=== PATIENT | male | born 1970 | race Caucasian/White ===

== ENCOUNTER 2024-03-14 17:01 | Emergency (ER) | payer BC, SELFPAY ==
[2024-03-14 17:06] VITALS: BP 154/94; PULSE 78; TEMP 36.8; O2SAT 96; BMI 29.8
--- NOTE | 2024-03-14 17:10 | XR_ITS ---
The [address] [address] Patient Name: JEREMIAH MEZA MRN: [id number] date: 1970 Sex: M Assigned Patient Location: ER Current Patient Location: ER Accession/Order Number: [id number] Exam Date: 03/14/2024 17:20 Report Date: 03/14/2024 18:35 At the request of: ALMA ROSA WELSH Procedure: XR foot RT min 3V IMAGES REVIEWED: XR ankle RT min 3V, XR foot RT min 3V COMPARISON: None available. CLINICAL INDICATION: pain FINDINGS/IMPRESSION: 1. Acute avulsion fracture of the lateral malleolus demonstrating mild displacement. 2. Acute mildly displaced fracture of the lateral talus with intra-articular extension into the subtalar joint. 3. Follow-up CT could better assess for subtle nondisplaced impaction fracture of the superolateral calcaneus. 4. Small subtle acute nondisplaced fracture of the posterior talus versus os trigonum. 5. Right foot and ankle otherwise appear intact. 6. Small plantar calcaneal spur. Electronically authenticated by: TY NAJERA Date: 03/14/2024 18:35
--- NOTE | 2024-03-14 17:10 | XR_ITS ---
The [address] [address] Patient Name: JEREMIAH MEZA MRN: [id number] date: 1970 Sex: M Assigned Patient Location: ER Current Patient Location: ER Accession/Order Number: [id number] Exam Date: 03/14/2024 17:20 Report Date: 03/14/2024 18:35 At the request of: ALMA ROSA WELSH Procedure: XR ankle RT min 3V IMAGES REVIEWED: XR ankle RT min 3V, XR foot RT min 3V COMPARISON: None available. CLINICAL INDICATION: pain FINDINGS/IMPRESSION: 1. Acute avulsion fracture of the lateral malleolus demonstrating mild displacement. 2. Acute mildly displaced fracture of the lateral talus with intra-articular extension into the subtalar joint. 3. Follow-up CT could better assess for subtle nondisplaced impaction fracture of the superolateral calcaneus. 4. Small subtle acute nondisplaced fracture of the posterior talus versus os trigonum. 5. Right foot and ankle otherwise appear intact. 6. Small plantar calcaneal spur. Electronically authenticated by: TY NAJERA Date: 03/14/2024 18:35
--- NOTE | 2024-03-14 17:44 | CT_ITS ---
The [address] [address] Patient Name: JEREMIAH MEZA MRN: [id number] date: 1970 Sex: M Assigned Patient Location: ER Current Patient Location: ED.[facility] Accession/Order Number: [id number] Exam Date: 03/14/2024 18:02 Report Date: 03/14/2024 19:33 At the request of: ALMA ROSA WELSH Procedure: CT foot RT wo con EXAM: CT foot RT wo con COMPARISON: Same day x-rays. CLINICAL INDICATION: calcaneous fracture TECHNIQUE: Multiplanar CT images of the right foot without contrast. Dose reduction techniques were achieved by using automated exposure control and/or adjustment of mA and/or kV according to patient size and/or use of iterative reconstruction technique. FINDINGS: Acute mildly comminuted retinacular avulsion fracture of the lateral-posterolateral cortex of the distal fibula demonstrating approximately 5 mm displacement. Acute markedly comminuted intra-articular fracture of the lateral-plantar talus at its subtalar joint articulation. Acute mildly displaced small fractures of the posterior medial talus and posterior lateral talus as best seen on sagittal imaging. Acute intra-articular nondisplaced mildly comminuted impaction fracture of the posterior lateral calcaneus with slight depression of the articular surface as best seen on sagittal images 115-125. Otherwise osseous structures appear intact. Moderate degenerative change of the subtalar joint, particularly along the medial aspect. CT/CT foot RT wo con IMPRESSION: As above. Electronically authenticated by: TY NAJERA Date: 03/14/2024 19:33
[2024-03-14] MEDS: HYDROCODONE/ACET 5-325 MG TABLET 1 TAB PO (17:53)
[2024-03-14 17:57] VITALS: BP 150/103; PULSE 77; O2SAT 97
--- NOTE | 2024-03-14 18:15 | ED_ITS ---
Documented by User: Venus Welsh 03/14/24 19:38 HPI HPI - General Adult General Chief complaint: Extremity Injury, Lower Stated complaint: lower extremity injury Time Seen by Provider: 03/14/24 17:05 Source: patient Mode of arrival: Wheelchair Limitations: no limitations History of Present Illness HPI narrative: 53-year-old male presents emergency room chief complaint of right foot ankle injury. He states he was approximately 4 feet off the ground on a ladder when he slipped and fell landing directly on his right foot and heel. He denies any other injury or pain. Denies striking his head. Injury occurred just prior to arrival. He said he felt a right ankle roll and a posterior ankle pain. Most of his pain is in the sole of his foot. He has no previous fracture to this extremity. Patient was ambulating with a slight limp. Related Data Home Medications ?Medication ?Instructions ?Recorded ?Confirmed esomeprazole magnesium 20 mg 20 mg PO DAILY 03/14/24 03/14/24 capsule,delayed release (Nexium) Allergies Allergy/AdvReac Type Severity Reaction Status Date / Time No Known Drug Allergies Allergy Verified 03/14/24 17:11 Opioid HPI Opioid Management Most Recent Opioid Data: Last Pain Scale 6 03/14/24 17:53 Last ED Pain Assessment 03/14/24 17:19 Last MAR Pain Assessment 03/14/24 17:53 Review of Systems ROS Narrative All Systems are negative except as noted/marked.All systems reviewed and otherwise negative Exam Narrative Exam Narrative: Nurses note and vital signs reviewed and patient is not hypoxic. General: The patient appears well and in no apparent distress. Patient is resting comfortably on cart. Skin: Warm, dry, no pallor noted. There is no rash noted. Head: Normocephalic, atraumatic Cardiovascular: Regular Rate and Rhythm Respiratory: Patient is in no distress, no accessory muscle use, lungs are clear to auscultation, no wheezing, rales or rhonchi Back: non-tender, no CVA tenderness bilaterally to percussion. GI: Normal bowel sounds, no tenderness to palpation, no masses appreciated. No rebound, guarding, or rigidity noted. Musculoskeletal: right lateral foot and heel pain, soft tissue swelling, neurovascularly intact. The patient has no evidence of calf tenderness, no pitting edema, symmetrical pulses noted bilaterally Neurological: A&O x4, normal speech Psychiatric: Cooperative Constitutional Vital Signs, click to edit/add: Last Vital Signs Temp 98.2 F 03/14/24 17:06 Pulse 77 03/14/24 17:57 Resp 18 03/14/24 17:57 BP 164/116 H 03/14/24 18:52 Pulse Ox 97 03/14/24 17:57 O2 Del Method Room Air 03/14/24 17:57 Course Vital Signs Vital signs: Vital Signs Temperature 98.2 F 03/14/24 17:06 Pulse Rate 78 03/14/24 17:06 Respiratory Rate 18 03/14/24 17:06 Blood Pressure 154/94 H 03/14/24 17:06 Pulse Oximetry 96 03/14/24 17:06 Oxygen Delivery Method Room Air 03/14/24 17:06 Temperature 98.2 F 03/14/24 17:06 Pulse Rate 77 03/14/24 17:57 Respiratory Rate 18 03/14/24 17:57 Blood Pressure 164/116 H 03/14/24 18:52 Pulse Oximetry 97 03/14/24 17:57 Oxygen Delivery Method Room Air 03/14/24 17:57 Medical Decision Making MDM Narrative Medical decision making narrative: pt presents with a chief complaint of right ankle, foot injury. Initial x-rays were performed and showed he had a calcaneus fracture. I did speak to Dr. Sissy al concerning this patient's care. Patient will follow-up with Dr. Billy's office. CT scan of the right foot is currently pending as well. No previous extremity injury to the right lower extremity. He has not seen orthopedics in the past. Long posterior splint was applied by myself. Extremity neurovascular intact before and after splint. Patient was medicated here with 1 Whick. Medical Records Medical records reviewed: Yes I reviewed the patient's medical records Imaging Data foot: Attestation: I have reviewed the pertinent imaging results. Radiologist's impression: ITS Impressions Foot CT 03/14/24 17:44 IMPRESSION: As above. Electronically authenticated by: TY NAJERA Date: 03/14/2024 19:33 At the request of: VENUS WELSH Procedure: XR ankle RT min 3V IMAGES REVIEWED: XR ankle RT min 3V, XR foot RT min 3V COMPARISON: None available. CLINICAL INDICATION: pain FINDINGS/IMPRESSION: 1. Acute avulsion fracture of the lateral malleolus demonstrating mild displacement. 2. Acute mildly displaced fracture of the lateral talus with intra-articular extension into the subtalar joint. 3. Follow-up CT could better assess for subtle nondisplaced impaction fracture of the superolateral calcaneus. 4. Small subtle acute nondisplaced fracture of the posterior talus versus os trigonum. 5. Right foot and ankle otherwise appear intact. 6. Small plantar calcaneal spur. Electronically authenticated by: TY NAJERA Date: 03/14/2024 18:35 ankle: Radiologist's impression: ITS Impressions Foot CT 03/14/24 17:44 IMPRESSION: As above. Electronically authenticated by: TY NAJERA Date: 03/14/2024 19:33 Discharge Plan Discharge Stand Alone Forms: Portal Instructions Chief Complaint: Extremity Injury, Lower Clinical Impression: Calcaneal fracture Patient Disposition: Home, Self-Care Time of Disposition Decision: 19:26 Condition: Good Prescriptions / Home Meds: No Action esomeprazole magnesium [Nexium] 20 mg capsule,delayed release(DR/EC) 20 mg PO DAILY Print Language: Australian Instructions: Crutch Instructions (ED), Calcaneal Fracture (ED) Referrals: RICA DILLARD [Primary Care Provider] - 1 week Kyler Billy DPM [Physician] - 03/17/24 Documented by User: Max Everett MD 03/14/24 19:40 HPI HPI - General Adult General Chief complaint: Extremity Injury, Lower Stated complaint: lower extremity injury Time Seen by Provider: 03/14/24 17:05 Related Data Home Medications ?Medication ?Instructions ?Recorded ?Confirmed esomeprazole magnesium 20 mg 20 mg PO DAILY 03/14/24 03/14/24 capsule,delayed release (Nexium) Allergies Allergy/AdvReac Type Severity Reaction Status Date / Time No Known Drug Allergies Allergy Verified 03/14/24 17:11 Opioid HPI Opioid Management Most Recent Opioid Data: Last Pain Scale 6 03/14/24 17:53 Last ED Pain Assessment 03/14/24 17:19 Last MAR Pain Assessment 03/14/24 17:53 Exam Constitutional Vital Signs, click to edit/add: Last Vital Signs Temp 98.2 F 03/14/24 17:06 Pulse 77 03/14/24 17:57 Resp 18 03/14/24 17:57 BP 164/116 H 03/14/24 18:52 Pulse Ox 97 03/14/24 17:57 O2 Del Method Room Air 03/14/24 17:57 Course Vital Signs Vital signs: Vital Signs Temperature 98.2 F 03/14/24 17:06 Pulse Rate 78 03/14/24 17:06 Respiratory Rate 18 03/14/24 17:06 Blood Pressure 154/94 H 03/14/24 17:06 Pulse Oximetry 96 03/14/24 17:06 Oxygen Delivery Method Room Air 03/14/24 17:06 Temperature 98.2 F 03/14/24 17:06 Pulse Rate 77 03/14/24 17:57 Respiratory Rate 18 03/14/24 17:57 Blood Pressure 164/116 H 03/14/24 18:52 Pulse Oximetry 97 03/14/24 17:57 Oxygen Delivery Method Room Air 03/14/24 17:57 Medical Decision Making [facility] Narrative Medical decision making narrative: pt presents with a chief complaint of right ankle, foot injury. Initial x-rays were performed and showed he had a calcaneus fracture. I did speak to Dr. Billy concerning this patient's care. Patient will follow-up with Dr. Billy's office. CT scan of the right foot is currently pending as well. This is ordered at the request of Dr. Billy to help him with evaluation and treatment. No previous extremity injury to the right lower extremity. He has not seen orthopedics in the past. Procedure note: short posterior splint was applied by Venus PAZ and Sophie Staffed with Extremity neurovascular intact before and after splint. Splint was assisted with . the patient was neurovascularly intact before and after the splint was placed. the affected bones/injured area had proper alignment in a splint. Education on splint care at home was given at bedside. Patient and family have no questions at discharge. Patient was medicated here with 1 Whick. Imaging Data foot: Radiologist's impression: ITS Impressions Foot CT 03/14/24 17:44 IMPRESSION: As above. Electronically authenticated by: TY NAJERA Date: 03/14/2024 19:33 ankle: Radiologist's impression: ITS Impressions Foot CT 03/14/24 17:44
[2024-03-14 18:52] VITALS: BP 164/116
== END 2024-03-14 19:40 | disposition home or self-care (01) ==
PROVIDERS: Emergency Provider Emergency Medicine; Family Provider Family Medicine; PCP Family Medicine
DX: S92.001A Unspecified fracture of right calcaneus, initial encounter for closed fracture (principal); S92.191A Other fracture of right talus, initial encounter for closed fracture; W11.XXXA Fall on and from ladder, initial encounter
CPT/HCPCS: 29515; 73610; 73630; 73700; 99285

== ENCOUNTER 2024-04-09 10:01 | Outpatient (OUT) | payer BC, SELFPAY ==
--- NOTE | 2024-04-09 | XR_ITS ---
The [address] [address] Patient Name: JEREMIAH MEZA MRN: [id number] date: 1970 Sex: M Assigned Patient Location: Current Patient Location: Accession/Order Number: [id number] Exam Date: 04/09/2024 10:02 Report Date: 04/10/2024 07:44 At the request of: LOAN BURGOS Procedure: XR foot RT min 3V PROCEDURE: XR foot RT min 3V HISTORY: RIGHT FOOT PAIN COMPARISON: None. FINDINGS: BONES:No fracture, acute abnormality, or significant arthropathy. SOFT TISSUES:No visible soft tissue swelling. EFFUSION:None visible. OTHER: Negative. XR/XR foot RT min 3V IMPRESSION: 1. No appreciable acute abnormality or significant chronic degenerative changes. 2. Lateral malleolus and lateral talar fracture described on prior right ankle radiographs are not visible on the right foot radiographs. Consider follow-up right ankle radiographs if clinically indicated. Electronically authenticated by: YARELY CLEARY Date: 04/10/2024 07:44
== END 2024-04-09 10:02 | disposition home or self-care (01) ==
LOC: EC 10:02
PROVIDERS: Family Provider Family Medicine; PCP Family Medicine; Visit Provider Podiatrist Foot & Ankle Surgery
DX: M79.671 Pain in right foot (principal)
CPT/HCPCS: 73630

== ENCOUNTER 2024-04-29 09:26 | Outpatient (OUT) | payer BC, SELFPAY ==
--- NOTE | 2024-04-29 | XR_ITS ---
The [address] [address] Patient Name: JEREMIAH MEZA MRN: [id number] date: 1970 Sex: M Assigned Patient Location: Current Patient Location: Accession/Order Number: [id number] Exam Date: 04/29/2024 09:45 Report Date: 04/29/2024 10:13 At the request of: LOAN BURGOS Procedure: XR foot RT min 3V PROCEDURE: XR foot RT min 3V, XR ankle RT min 3V COMPARISON: HISTORY: RIGHT FOOT PAIN FINDINGS: BONES:No new fracture or dislocation. Increased sclerosis along the plantar talus consistent with a healing fracture. Stable comminuted fracture lateral aspect of the lateral malleolus Mild enthesopathic spurring of the calcaneus at the Achilles and plantar insertions. SOFT TISSUES:Soft tissue swelling EFFUSION:None visible. OTHER: Negative. XR/XR foot RT min 3V IMPRESSION: Stable fractures plantar talus and lateral malleolus Electronically authenticated by: RICA ROBLES Date: 04/29/2024 10:13
--- NOTE | 2024-04-29 | XR_ITS ---
The [address] [address] Patient Name: JEREMIAH MEZA MRN: [id number] date: 1970 Sex: M Assigned Patient Location: Current Patient Location: Accession/Order Number: [id number] Exam Date: 04/29/2024 09:45 Report Date: 04/29/2024 10:13 At the request of: LOAN BURGOS Procedure: XR ankle RT min 3V PROCEDURE: XR foot RT min 3V, XR ankle RT min 3V COMPARISON: HISTORY: RIGHT FOOT PAIN FINDINGS: BONES:No new fracture or dislocation. Increased sclerosis along the plantar talus consistent with a healing fracture. Stable comminuted fracture lateral aspect of the lateral malleolus Mild enthesopathic spurring of the calcaneus at the Achilles and plantar insertions. SOFT TISSUES:Soft tissue swelling EFFUSION:None visible. OTHER: Negative. XR/XR ankle RT min 3V IMPRESSION: Stable fractures plantar talus and lateral malleolus Electronically authenticated by: RICA ROBLES Date: 04/29/2024 10:13
== END 2024-04-29 09:27 | disposition home or self-care (01) ==
LOC: EC 09:27
PROVIDERS: Family Provider Family Medicine; PCP Family Medicine; Visit Provider Podiatrist Foot & Ankle Surgery
DX: M25.571 Pain in right ankle and joints of right foot (principal); S92.191D Other fracture of right talus, subsequent encounter for fracture with routine healing; S82.64XD Nondisplaced fracture of lateral malleolus of right fibula, subsequent encounter for closed fracture with routine healing
CPT/HCPCS: 73610; 73630

== ENCOUNTER 2024-05-27 09:31 | Outpatient (OUT) | payer BC, SELFPAY ==
--- NOTE | 2024-05-27 | XR_ITS ---
The [address] [address] Patient Name: JEREMIAH MEZA MRN: [id number] date: 1970 Sex: M Assigned Patient Location: Current Patient Location: Accession/Order Number: [id number] Exam Date: 05/27/2024 09:31 Report Date: 05/28/2024 06:35 At the request of: LOAN BURGOS Procedure: XR ankle RT min 3V PROCEDURE: XR ankle RT min 3V, XR calcaneus RT min 2V HISTORY: RIGHT ANKLE PAIN COMPARISON: XR right ankle and foot 04/29/2024, CT foot 03/14/2024 FINDINGS: BONES:Increased sclerosis along the plantar margin of mid talus in region of sinus tarsi at site of prior fracture . Stable thin calcifications lateral to the lateral malleolus consistent with avulsion fracture. SOFT TISSUES:Mild soft tissue swelling surrounding the ankle. EFFUSION:None visible. OTHER: Negative. XR/XR ankle RT min 3V IMPRESSION: 1. Grossly stable alignment and suspected ongoing bone healing of talus fracture and lateral malleolus fracture. 2. No appreciable calcaneal fracture on today's images. Electronically authenticated by: YARELY CLEARY Date: 05/28/2024 06:35
--- NOTE | 2024-05-27 | XR_ITS ---
The [address] [address] Patient Name: JEREMIAH MZEA MRN: [id number] date: 1970 Sex: M Assigned Patient Location: Current Patient Location: Accession/Order Number: [id number] Exam Date: 05/27/2024 09:33 Report Date: 05/28/2024 06:35 At the request of: LOAN BURGOS Procedure: XR calcaneus RT min 2V PROCEDURE: XR ankle RT min 3V, XR calcaneus RT min 2V HISTORY: RIGHT ANKLE PAIN COMPARISON: XR right ankle and foot 04/29/2024, CT foot 03/14/2024 FINDINGS: BONES:Increased sclerosis along the plantar margin of mid talus in region of sinus tarsi at site of prior fracture . Stable thin calcifications lateral to the lateral malleolus consistent with avulsion fracture. SOFT TISSUES:Mild soft tissue swelling surrounding the ankle. EFFUSION:None visible. OTHER: Negative. XR/XR calcaneus RT min 2V IMPRESSION: 1. Grossly stable alignment and suspected ongoing bone healing of talus fracture and lateral malleolus fracture. 2. No appreciable calcaneal fracture on today's images. Electronically authenticated by: YARELY CLEARY Date: 05/28/2024 06:35
== END 2024-05-27 09:32 | disposition home or self-care (01) ==
LOC: EC 09:31
PROVIDERS: Family Provider Family Medicine; PCP Family Medicine; Visit Provider Podiatrist Foot & Ankle Surgery
DX: M25.571 Pain in right ankle and joints of right foot (principal); S92.191D Other fracture of right talus, subsequent encounter for fracture with routine healing; S82.61XD Displaced fracture of lateral malleolus of right fibula, subsequent encounter for closed fracture with routine healing
CPT/HCPCS: 73610; 73650

== ENCOUNTER 2024-06-11 10:10 | Outpatient (OUT) | payer BC, SELFPAY ==
--- NOTE | 2024-06-11 10:20 | CT_ITS ---
The [address] [address] Patient Name: JEREMIAH MEZA MRN: [id number] date: 1970 Sex: M Assigned Patient Location: CT Current Patient Location: Accession/Order Number: [id number] Exam Date: 06/11/2024 10:22 Report Date: 06/12/2024 07:57 At the request of: LOAN BURGOS Procedure: CT ankle RT wo con EXAMINATION: CT ankle RT wo con HISTORY: Talus Fracture COMPARISON: No relevant comparison available. TECHNIQUE: Multi-planar CT images were created without IV contrast. Dose reduction techniques were achieved by using automated exposure control and/or adjustment of mA and/or kV according to patient size and/or use of iterative reconstruction technique. FINDINGS: BONES: 1.9 x 0.9 x 1.3 cm fracture fragment identified along the lateral process of the talus this is best visualized on sagittal image 66 and coronal image 54. No bone formation or bony bridging is observed. Linear calcific density identified along the lateral aspect of the distal fibula consistent with an avulsion injury. Permeative pattern of the bones suggests osteopenia with cortical thinning. Mild to moderate enthesopathic spurring of the calcaneus at the Achilles and plantar insertions SOFT TISSUES: Moderate soft tissue swelling EFFUSION: None visible. OTHER: Negative. CT/CT ankle RT wo con IMPRESSION: 1.9 cm acute fracture along the lateral process of the talus Electronically authenticated by: RICA ROBLES Date: 06/12/2024 07:57
== END 2024-06-11 10:11 | disposition home or self-care (01) ==
LOC: CT 10:11
PROVIDERS: Family Provider Family Medicine; PCP Family Medicine; Visit Provider Podiatrist Foot & Ankle Surgery
DX: S92.101A Unspecified fracture of right talus, initial encounter for closed fracture (principal)
CPT/HCPCS: 73700

== ENCOUNTER 2024-07-16 09:50 | Outpatient (OUT) | payer BC, SELFPAY ==
--- NOTE | 2024-07-16 | XR_ITS ---
The [address] [address] Patient Name: JEREMIAH MEZA MRN: [id number] date: 1970 Sex: M Assigned Patient Location: Current Patient Location: Accession/Order Number: [id number] Exam Date: 07/16/2024 09:52 Report Date: 07/18/2024 04:25 At the request of: LOAN BURGOS Procedure: XR foot RT min 3V PROCEDURE: XR foot RT min 3V HISTORY: RIGHT FOOT PAIN COMPARISON: None. FINDINGS: BONES:Increased sclerosis adjacent the talocalcaneal joint favoring ongoing bone healing. No new fracture or dislocation. SOFT TISSUES:No visible soft tissue swelling. EFFUSION:None visible. OTHER: Negative. XR/XR foot RT min 3V IMPRESSION: 1. Ongoing bone healing. Electronically authenticated by: YARELY CLEARY Date: 07/18/2024 04:25
== END 2024-07-16 09:51 | disposition home or self-care (01) ==
LOC: EC 09:50
PROVIDERS: Family Provider Family Medicine; PCP Family Medicine; Visit Provider Podiatrist Foot & Ankle Surgery
DX: M79.671 Pain in right foot (principal)
CPT/HCPCS: 73630

== ENCOUNTER 2024-08-12 09:07 | Outpatient (OUT) | payer BC, SELFPAY ==
--- NOTE | 2024-08-12 | XR_ITS ---
The [address] [address] Patient Name: JEREMIAH MEZA MRN: [id number] date: 1970 Sex: M Assigned Patient Location: [facility] Current Patient Location: Accession/Order Number: [id number] Exam Date: 08/12/2024 09:10 Report Date: 08/13/2024 06:32 At the request of: LOAN BURGOS Procedure: XR foot RT min 3V PROCEDURE: XR foot RT min 3V HISTORY: RIGHT FOOT PAIN COMPARISON: XR foot right 07/16/2024 FINDINGS: BONES:Stable alignment and appearance of the bones of the foot and ankle. SOFT TISSUES:No visible soft tissue swelling. EFFUSION:None visible. OTHER: Negative. XR/XR foot RT min 3V IMPRESSION: 1. Different patient histories described prior calcaneal fracture and or talar fracture. Stable appearance of the foot. Consider follow-up with CT imaging. Electronically authenticated by: YARELY CLEARY Date: 08/13/2024 06:32
--- OUTSIDE RECORDS SUMMARY | 2024-08-12 09:10 | XMS_ITS | CCD ---
Author Organization [facility] Care Team Providers Care Pleating Supervisor Name Role Phone LOAN BURGOS Referring Unavailable Encounters Encounter Date Encounter Type Care Provider Facility Start: 07[facility]23[facility]2024 [facility] Date Payer Category Payer Unknown [id number] 1970 Unknown [id number] Summary Purpose Family History No Family History Records Found Advance Directives No Advanced Directives Records Found Additional Source Comments (unrecognized sect ion and content) No Status Records Found INFORMATION SOURCE (unrecogn ized section and content) DATE CREATED AUTHOR 08/11/2024 [facility] FOR RECORDS PERTAINING TO PATIENTS WHO ARE OR HAVE BEEN ENROLLED IN A CHEMICAL DEPENDENCY/SUBSTANCEABUSE PROGRAM, SOME INFORMATION MAY BE OMITTED. This clinical summary was aggregated from multiple sources. Caution should be exercised in using it in the provision of clinical care. This summary normalizes information from multiple sources, and as a consequence, information in this document may materially change the coding, format and clinical context of patient data. In addition, data may be omitted in some cases. CLINICAL DECISIONS SHOULD BE BASED ON THE PRIMARY CLINICAL RECORDS. [facility] [employer] [facility]. provides no warranty or guarantee of the accuracy or completeness of information in this document.
== END 2024-08-12 09:08 | disposition home or self-care (01) ==
LOC: RAD 09:07
PROVIDERS: Family Provider Family Medicine; PCP Family Medicine; Visit Provider Podiatrist Foot & Ankle Surgery
DX: S92.121 Displaced fracture of body of right talus (principal)
CPT/HCPCS: 73630

== ENCOUNTER 2024-09-10 09:01 | Outpatient (OUT) | payer BC, SELFPAY ==
--- NOTE | 2024-09-10 09:04 | XR_ITS ---
[address] [address] Patient Name: JEREMIAH MEZA MRN: [id number] date: 1970 Sex: M Assigned Patient Location: [facility] Current Patient Location: Accession/Order Number: [id number] Exam Date: 09/10/2024 09:04 Report Date: 09/15/2024 07:23 At the request of: LOAN BURGOS Procedure: XR foot RT min 3V PROCEDURE: XR foot RT min 3V COMPARISON: 08/12/2024 HISTORY: Right Foot Pain FINDINGS: BONES:No acute fracture or dislocation. Mild degenerative changes with marginal osteophyte formation and enthesopathic spurring. SOFT TISSUES:Negative. No visible soft tissue swelling. EFFUSION:None visible. OTHER: Negative. XR/XR foot RT min 3V IMPRESSION: Mild degenerative changes Electronically authenticated by: RICA ROBLES Date: 09/15/2024 07:23
--- OUTSIDE RECORDS SUMMARY | 2024-09-10 09:20 | XMS_ITS | CCD ---
Author Organization [facility] Care Team Providers Care Eviction Specialist Name Role Phone LOAN BURGOS Referring Unavailable Encounters Encounter Date Encounter Type Care Provider Facility Start: 07[facility] P[facility] Date Payer Category Payer Unknown [id number] 1970 Unknown [id number] Summary Purpose Family History No Family History Records Found Advance Directives No Advanced Directives Records Found Additional Source Comments (unrecognized sect ion and content) No Status Records Found INFORMATION SOURCE (unrecogn ized section and content) DATE CREATED AUTHOR 08/14/2024 [facility] FOR RECORDS PERTAINING TO PATIENTS WHO [...] BE BASED ON THE PRIMARY CLINICAL RECORDS. [facility] [employer] [facility]. provides no warranty or guarantee of the accuracy or completeness of information in this document.
== END 2024-09-10 09:02 | disposition home or self-care (01) ==
LOC: RAD 09:01
PROVIDERS: Family Provider Family Medicine; PCP Family Medicine; Visit Provider Podiatrist Foot & Ankle Surgery
DX: M79.671 Pain in right foot (principal)
CPT/HCPCS: 73630

== ENCOUNTER 2024-10-13 09:32 | Outpatient (OUT) | payer BC, SELFPAY ==
--- NOTE | 2024-10-13 09:37 | CT_ITS ---
[address] [address] Patient Name: JEREMIAH MEZA MRN: [id number] date: 1970 Sex: M Assigned Patient Location: CT Current Patient Location: CT Accession/Order Number: [id number] Exam Date: 10/13/2024 09:52 Report Date: 10/13/2024 13:14 At the request of: LOAN BURGOS Procedure: CT foot RT wo con EXAMINATION: CT foot RT wo con HISTORY: Right Talus Fracture COMPARISON: CT ankle right 06/11/2024 TECHNIQUE: Multi-planar CT images were created without and/or with IV contrast according to examination type. Dose reduction techniques were achieved by using automated exposure control and/or adjustment of mA and/or kV according to patient size and/or use of iterative reconstruction technique. FINDINGS: BONES: Prior fracture of the lateral process of the talus with slight lateral displacement. The 2 parts of the separate fragment have fused/ossified. No significant ossification of the fracture line between the larger combined fragments and the talus. SOFT TISSUES: Negative. No visible soft tissue swelling. EFFUSION: None visible. OTHER: Negative. CT/CT foot RT wo con IMPRESSION: 1. Partial osseous healing of prior fracture of the lateral process of the talus. Incomplete osseous union between the fragment and the body of the talus. Electronically authenticated by: YARELY CLEARY Date: 10/13/2024 13:14
== END 2024-10-13 09:33 | disposition home or self-care (01) ==
LOC: CT 09:32
PROVIDERS: Family Provider Family Medicine; PCP Family Medicine; Visit Provider Podiatrist Foot & Ankle Surgery
DX: S92.14 Dome fracture of talus (principal)
CPT/HCPCS: 73700